=== PATIENT | male | born 1965 | race Caucasian/White ===

== ENCOUNTER 2023-05-02 21:34 | Emergency (ER) | payer OTHER, BC, SELFPAY ==
[2023-05-02 21:43] VITALS: BP 127/95; PULSE 60; RESP 20; TEMP 36.9; O2SAT 95; BMI 40.7
--- NOTE | 2023-05-02 21:46 | ED.EXTPRO1 ---
HPI - Extremity Problem General Chief complaint: Extremity Injury, Upper Stated complaint: RT ELBOW INJURY/PAIN [facility] Time Seen by Provider: 05/02/23 21:43 History of Present Illness HPI Narrative: injured right elbow shoveling at work. States one time he shoveled and hit something heavy and the shovel came to an abrupt stop and he experienced a burning pain of the right elbow about one hour ago. Pain continues and he is now here to have it checked. Denies other injury or complaint at this time MD Complaint: Reports extremity pain Related Data Allergies Allergy/AdvReac Type Severity Reaction Status Date / Time heparin Allergy Verified 05/02/23 21:40 Review of Systems ROS Status of ROS 10 or more systems reviewed and unremarkable except as noted in history and below PFSH PFS Social History Smoking status: Never smoker Exam Constitutional Vital Signs, click to edit/add: Last Vital Signs Temp 98.5 F 05/02/23 21:43 Pulse 60 05/02/23 21:43 Resp 20 05/02/23 21:43 BP 127/95 H 05/02/23 21:43 Pulse Ox 95 05/02/23 21:43 Common normals: no apparent distress, oriented x3, healthy appearing, alert and well nourished [facility] Common normals: normocephalic and head/scalp atraumatic Eye Common normals: EOMs intact bilaterally and conjunctivae normal Respiratory Common normals: normal respiratory effort, no retractions and no use of accessory muscles Extremity Other: focal tenderness of lateral and medial epicondyle. FROM of the elbow Neuro Common normals: oriented x3, CN's II-XII intact bilaterally, moves all extremities, no focal motor deficits and no sensory deficits noted Psych Appearance: grossly normal Course Vital Signs Vital signs: Vital Signs Temperature 98.5 F 05/02/23 21:43 Pulse Rate 60 05/02/23 21:43 Respiratory Rate 20 05/02/23 21:43 Blood Pressure 127/95 H 05/02/23 21:43 Pulse Oximetry 95 05/02/23 21:43 Temperature 98.5 F 05/02/23 21:43 Pulse Rate 60 05/02/23 21:43 Respiratory Rate 20 05/02/23 21:43 Blood Pressure 127/95 H 05/02/23 21:43 Pulse Oximetry 95 05/02/23 21:43 MDM - Extremity (Nontraumatic) MDM Narrative Medical decision making narrative: patient injured right elbow while shoveling at work. Acute injury. point tenderness bilat epicondyles. xray without fracture but does demonstrate swelling. Patient informed of the diagnosis of acute inflammatory injury right elbow. Patient placed in a sling and will need to follow up with Industrial medicine Discharge Plan Discharge Chief Complaint: Extremity Injury, Upper Clinical Impression: Injury of elbow, right Patient Disposition: Home, Self-Care Instructions: Musculoskeletal Pain (ED) Additional Instructions: follow up with Industrial medicine thursday. Continue Advil or similar for pain Stand Alone Forms: Portal Instructions Referrals: Physician,Non-Staff, MD [Primary Care Provider] - 1 week
--- NOTE | 2023-05-02 21:49 | XR_ITS ---
The [address] [address] Patient Name: BOBBY ANDERSON MRN: [id number] date: 1965 Sex: M Assigned Patient Location: ER Current Patient Location: ER Accession/Order Number: [id number] Exam Date: 05/02/2023 20:00 Report Date: 05/02/2023 22:56 At the request of: DARION VAUGHN Procedure: XR elbow RT min 3V EXAM: XR elbow RT min 3V HISTORY: injury COMPARISON: None. TECHNIQUE: 3 view study FINDINGS: Overall bony architecture is normal. Articulations at the elbow are intact. There is a triceps insertion enthesophyte on the olecranon. Posterior soft tissue swelling is noted. Distal humeral fat pads are normally positioned. XR/XR elbow RT min 3V IMPRESSION: Posterior soft tissue swelling. No evidence for acute fracture or dislocation. Electronically authenticated by: Michael GUTIERREZ Date: 05/02/2023 22:56
== END 2023-05-02 23:28 | disposition home or self-care (01) ==
PROVIDERS: Emergency Provider Internal Medicine
DX: S59.901A Unspecified injury of right elbow, initial encounter (principal); X50.9XXA Other and unspecified overexertion or strenuous movements or postures, initial encounter
CPT/HCPCS: 73080; 99283